=== PATIENT | female | born 1975 | race Caucasian/White ===

== ENCOUNTER 2017-12-30 05:36 | Day surgery (SDC) | payer OTHER ==
[2017-12-30 06:28] LABS: ADD MAN DIFF? NO
[2017-12-30] MEDS ORDERED: ROCURONIUM 50 MG INJ ×2 (06:53→07:57)
[2017-12-30] MEDS ORDERED: PROPOFOL 20 ML (06:53)
[2017-12-30] MEDS ORDERED: MIDAZOLAM 1 MG/ML 2 ML INJ ×2 (06:53)
[2017-12-30] MEDS ORDERED: CEFAZOLIN 1 GM INJ (06:54)
[2017-12-30 06:57] LABS: ADD UMIC YES; UR ASCORBIC ACID NEGATIVE (NEGATIVE); UR BACTERIA FEW /HPF (NONE SEEN); UR BILIRUBIN (Dip) NEGATIVE (NEGATIVE); UR BLOOD (Dip) NEGATIVE (NEGATIVE); UR CLARITY CLOUDY (CLEAR); UR COLOR YELLOW (YELLOW); UR GLUCOSE (Dip) NEGATIVE (NEGATIVE); UR KETONES (Dip) NEGATIVE (NEGATIVE); UR LEUKOCYTE ESTERASE (Dip) TRACE Leu/ul (NEGATIVE); UR MUCUS FEW /HPF (NONE SEEN); UR NITRITE (Dip) NEGATIVE (NEGATIVE); UR RBC 3 /HPF (0-5); UR SPECIFIC GRAVITY (Dip) 1.021 (1.003-1.030); UR SQUAMOUS EPITHELIAL CELL MODERATE /HPF (FEW); UR TOTAL PROTEIN (Dip) NEGATIVE (NEGATIVE); UR UROBILINOGEN (Dip) NEGATIVE (NEGATIVE); UR WBC 7 /HPF (0-5)
[2017-12-30] MEDS ORDERED: ROPIVACAINE 0.5 % 30 ML VIAL (07:00)
[2017-12-30 07:15] LABS: BASOPHIL # 0.1 10^3/ul (0.0-0.1); BASOPHILS % 0.9 % (0.0-2.0); EOSINOPHILS # 0.2 10^3/ul (0.0-0.5); EOSINOPHILS % 2.6 % (0.0-7.0); HEMATOCRIT 43.7 % (37.0-47.0); HEMOGLOBIN 14.8 g/dl (12.0-16.0); LYMPHOCYTES # 2.2 10^3/ul (0.8-2.9); LYMPHOCYTES % 27.1 % (15.0-51.0); MEAN CORPUSCULAR HEMOGLOBIN 32.6 pg (29.0-33.0); MEAN CORPUSCULAR HGB CONC 33.9 g/dl (32.0-37.0); MEAN CORPUSCULAR VOLUME 96.3 fl (82.0-101.0); MEAN PLATELET VOLUME 9.5 fl (7.4-10.4); MONOCYTE # 0.7 10^3/ul (0.3-0.9); MONOCYTES % 8.4 % (0.0-11.0); NEUTROPHILS % 60.8 % (39.0-77.0); PLATELET COUNT 279 10^3/UL (140-415); RED BLOOD COUNT 4.54 10^6/ul (4.20-5.40); RED CELL DISTRIBUTION WIDTH 12.6 % (11.5-14.5)
[2017-12-30 07:15] LABS: WHITE BLOOD COUNT 8.1 10^3/ul (4.8-10.8)
[2017-12-30] MEDS ORDERED: METOCLOPRAMIDE 10 MG INJ (07:23)
[2017-12-30] MEDS ORDERED: KETOROLAC 30 MG INJ (07:23)
[2017-12-30] MEDS ORDERED: ONDANSETRON 4 MG INJ (07:23)
[2017-12-30] MEDS ORDERED: DEXAMETHASONE 4 MG/ML 1 ML INJ (07:23)
[2017-12-30 07:36] LABS: ALANINE AMINOTRANSFERASE 29 IU/L (13-69); ALBUMIN/GLOBULIN RATIO 1.53; ALKALINE PHOSPHATASE 59 IU/L (42-121); ANION GAP 15 (8-16); ASPARTATE AMINO TRANSFERASE 17 IU/L (15-46); BILIRUBIN,INDIRECT 0.5 mg/dl (0-1.1); BILIRUBIN,TOTAL 0.5 mg/dl (0.2-1.3); CARBON DIOXIDE 26 mmol/L (21-31); CHLORIDE 110 mmol/L (97-110); GLUCOSE 109 mg/dl (70-220); INR 1.01; PROTIME 13.4 Sec (11.9-14.9); TOTAL PROTEIN 6.6 g/dl (6.1-8.1)
[2017-12-30 07:37] LABS: PARTIAL THROMBOPLASTIN TIME 29.6 Sec (25.0-35.0)
[2017-12-30 07:45] LABS: BLOOD UREA NITROGEN 11 mg/dl (7-20); CALCIUM 9.4 mg/dl (8.4-10.2); CREATININE 0.79 mg/dl (0.44-1.00); SODIUM 147 mmol/L (135-144)
[2017-12-30] MEDS: POLYMYXIN/BACITRACIN 1L IRRIG IRR (08:22)
[2017-12-30] MEDS: ROPIVACAINE 0.5 % 30 ML VIAL (08:22)
[2017-12-30] MEDS: POVIDONE IODINE 10% 28.4 GM OINT (08:23)
[2017-12-30] MEDS ORDERED: ACETAMINOPHEN 1000MG/100ML IV 100 ML (08:46)
[2017-12-30] MEDS ORDERED: SUGAMMADEX SODIUM 200 MG/2 ML VIAL IV (09:58)
[2017-12-30] MEDS ORDERED: ONDANSETRON 4 MG INJ IV ×2 (10:30→11:00)
[2017-12-30] MEDS ORDERED: EPHEDrine SULFATE 50 MG/5 ML SYG IV (10:30)
[2017-12-30] MEDS ORDERED: HYDROmorphONE (0.2 MG/ML) 10ML SYG IV ×2 (10:30)
[2017-12-30] MEDS ORDERED: FENTAnyl 50 MCG/ML VIAL IV ×3 (10:30)
[2017-12-30] MEDS ORDERED: DIPHENHYDRAMINE 50 MG INJ IV (10:30)
[2017-12-30] MEDS ORDERED: IPRATROPIUM (NEB) 0.5 MG/2.5 ML AMP HHN (10:30)
[2017-12-30] MEDS ORDERED: KETOROLAC 30 MG INJ IV (10:30)
[2017-12-30] MEDS ORDERED: OXYCODONE/ACETAMINOPHEN (5/325) TAB PO ×4 (10:30→11:00)
[2017-12-30] MEDS ORDERED: LABETALOL HCL 20MG INJ IV (10:30)
[2017-12-30] MEDS ORDERED: MEPERIDINE 25 MG INJ IV (10:30)
[2017-12-30] MEDS ORDERED: METOCLOPRAMIDE 10 MG INJ IV (10:30)
[2017-12-30] MEDS ORDERED: ALBUTEROL 0.083% (NEB) 2.5 MG/3 ML AMP HHN (10:30)
[2017-12-30] MEDS ORDERED: SOD CHLORIDE 0.9% 1,000 ML IV (10:50)
[2017-12-30] MEDS ORDERED: morphine 2 MG INJ IV (11:00)
== END 2017-12-30 12:28 | disposition home or self-care (01) ==
LOC: SDS 05:36
DX: M25.872 Other specified joint disorders, left ankle and foot (principal); M25.372 Other instability, left ankle; Z87.891 Personal history of nicotine dependence
CPT/HCPCS: 27695; 71045; 73610-50; 80053; 81001; 84703; 85025; 85610; 85730; 93005